=== PATIENT | female | born 1990 | race Two or more races ===

== ENCOUNTER 2025-01-20 20:26 | Emergency (ER) | payer OTHER, MEDICAID ==
[~2025-01-20] VITALS: Ht 162.6 cm; Wt 107.8 kg
[2025-01-20 20:28] VITALS: BP 120/84; PULSE 100; RESP 16; TEMP 98.5; O2SAT 97
== END 2025-01-20 23:47 | disposition left against medical advice (07) ==
LOC: ER 20:26
DX: L03.119 Cellulitis of unspecified part of limb (principal); Z53.21 Procedure and treatment not carried out due to patient leaving prior to being seen by health care provider